=== PATIENT | female | born 1945 | race Caucasian/White ===

== ENCOUNTER 2017-06-19 15:00 | Emergency (ER) | payer MEDICARE, OTHER ==
[~2017-06-19] VITALS: Wt 62.5 kg
[~2017-06-19 15:00] MED LIST: ASPI325T32 PO; ATEN-51 PO; EZET10TA3 PO; GABA300C PO; INSU100I22 SC; LISI-313 PO; METF1000 PO; RANI150T5 PO; TRAM50TA2 PO
[2017-06-19] MEDS ORDERED: KETOROLAC 15 MG INJ IM STA (16:33)
[2017-06-19] MEDS ORDERED: ACETAMINOPHEN 500 MG TAB PO STA (16:33)
--- NOTE | 2017-06-19 16:33 | ERD ---
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 pt has seen her MD for this pain was given pills that make her sleepy but does not help the pain. Patient does not remember the name of the pills. She denies any alteration in bowel or bladder, denies any difficulty ambulating, has a difficult time explaining the pain, reports that she does have numbness and tingling at the bottom of her foot. ROS All systems reviewed and are negative except as per history of present illness. Medications Home Meds Active Scripts Hydrocodone/Acetaminophen ([place] 5-325 Tablet) 1 Each Tablet, 1 TAB PO Q6H Y for PAIN, #7 TAB Prov:STEPHANIE LU 06/19/17 Metformin Hcl* (Metformin Hcl*) 1,000 Mg Tablet, 1000 MG PO WITH BREAKFAST DINNE for 30 Days, #30 TAB Prov:LENORE GARCIA TERMINOLOGIST 08/05/16 Lisinopril* (Lisinopril*) 5 Mg Tablet, 5 MG PO DAILY for 30 Days, TAB Prov:LENORE GARCIA TERMINOLOGIST 08/05/16 Tramadol HCl (Tramadol HCl) 50 Mg Tablet, 50 MG PO Q6H Y for PAIN, #14 TAB Prov:LUIS M LORENZO 04/25/16 Reported Medications Ezetimibe* (Zetia*) 10 Mg Tablet, 10 MG PO DAILY, TAB 04/24/16 Insulin Aspart (Novolog FlexPen) 100 Unit/1 Ml Insuln.pen, 4 UNITS SC WITH DINNER, EA 04/24/16 Atenolol* (Atenolol*) 25 Mg Tablet, 25 MG PO DAILY, #30 TAB 03/17/16 Ranitidine Hcl* (Ranitidine Hcl*) 150 Mg Tablet, 150 MG PO Q12, TAB 12/22/14 Aspirin* (Aspirin* EC) 325 Mg Tablet.dr, 325 MG PO DAILY, TAB 12/22/14 Gabapentin* (Neurontin*) 300 Mg Capsule, 300 MG PO TID, CAP 11/24/14 Allergies Allergies: Coded Allergies: Penicillins (Verified Allergy, Intermediate, itchy throat, rashes, 09/07/16 ) PMhx/Soc History of Surgery: Yes (gallbladder surgery, removal of benign tumor in the uterus) Anesthesia Reaction: No Hx Neurological Disorder: No Hx Respiratory Disorders: No Hx Cardiac Disorders: Yes (CAD s/p [place] w/ PCI and stenting) Hx Psychiatric Problems: Yes (depression) Hx Miscellaneous Medical Probl: Yes (dyslipidemia, syncope) Hx Alcohol Use: No Hx Substance Use: No Hx Tobacco Use: No Physical Exam Vitals Vital Signs Date Time Temp Pulse Resp B/P Pulse Ox O2 Delivery O2 Flow Rate FiO2 06/19/17 15:04 98.0 78 18 183/77 99 Vitals stable, blood pressure 183/77, triage notes reviewed Physical Exam Const: Well-nourished, well-appearing, Setswana-speaking female no acute Head: Eyes: Normal Conjunctiva, PERRLA, EOMI ENT: Normal External Ears, Nose and Mouth. Neck: . Resp: Respirations even and unlabored no respiratory distress Cardio: Abd: Skin: Back Exam: Skin: No bruising or rash Compartments: Soft Motor: Normal flexion and extension of bilateral hip/knee/ ankle/foot Sensation: Intact to light touch throughout Bones: No tenderness over bony prominence of spine. Ext: No cyanosis, or edema Neur: Awake and alert Psych: Normal Mood and Affect Results 24 hrs Current Medications Medications (Trade) Dose Ordered Sig/Tirso Route PRN Reason Start Time Stop Time Status Last Admin Dose Admin Ketorolac Tromethamine (Toradol) 15 mg ONCE STAT IM 06/19/17 16:33 06/19/17 16:35 DC 06/19/17 17:12 Acetaminophen (Tylenol Tab) 500 mg ONCE STAT PO 06/19/17 16:33 06/19/17 16:35 DC 06/19/17 17:12 Procedures/MDM This 71-year-old female presents to emergency department with complaint of chronic back pain. Patient reports that she has been seen in emergency department 3 months ago was given pain medication that makes her sleepy, patient reports that it has not improved the pain, pain radiates from the left lumbar to her gluteus nick down to her foot. Patient describes pain as tingling and numbness in her foot. Chart review shows no past medical history of lumbar pain. Patient has been seen multiple times for abdominal pain and chest pain. She is a diabetic on lisinopril for hypertension and has taken tramadol in the past. Patient has no acute musculoskeletal injury reported no injury, cauda equina is not suspected. X-ray to rule out fracture is not indicated. Patient is treated for pain Toradol 15 mg intramuscularly., 500 mg of Tylenol, and urinalysis negative for evidence of leukocytosis, nitrates or microscopic hematuria, negative for evidence of infection, urinary tract infection is not found. Patient will be discharged with [place] 1 tab p.o. every 6 hours as needed pain, count of 7 given. Follow-up with primary physician for management of nonacute back pain. Return to emergency department for alteration in bowel or bladder, incontinence, difficulty ambulating, pain not resolved with medication. I feel the patient is stable for discharge at this time. I have discussed results, examination findings, the treatment plan with the patient and family present prior to discharge. Indications for emergent reevaluation, side effects of medication were also discussed. All questions were answered. Patient verbalizes understanding and agrees with plan of care. Departure Diagnosis: Primary Impression: Back pain Back pain location: low back pain Chronicity: unspecified Back pain laterality: left Sciatica presence: with sciatica Sciatica laterality: sciatica of left side Qualified Code: M54.42 - Left-sided low back pain with left-sided sciatica, unspecified chronicity Condition: Good Patient Instructions: Back Pain (Acute Or Chronic), Back Pain W/ Sciatica [facility] Additional Instructions: Thank you for for coming to [facility] for your care today. Please ask your nurse or provider if you have questions about your care today and do not leave until all your questions have been answered. Please use any medications given as directed and follow-up with your doctor (or the doctor you were referred to) in the next 2-3 days. If you do not have a primary care doctor you may follow up at the [facility] (listed below). You may also use motrin and tylenol as needed for fever and/or pain unless instructed otherwise by your provider or nurse. Indications for more urgent follow-up have been discussed, but you may return to the Emergency Department at ANY time for any worrisome or worsening symptoms. If you have abdominal pain, please know that no test or exam you received is perfect and you should follow up within 8 hours for continued pain. If you had any imaging studies today, such as an X-Ray or CT Scan, these studies will be reviewed later by a radiologist. You will be called if there are important findings that were not identified today, so make sure the contact information you provided at registration is correct. If you received any narcotic pain control medicine today, such as Vicodin, Morphine or Dilaudid, your coordination and judgment may be affected for a number of hours. Please do not drive or operate heavy machinery, and you may want someone to assist you at home. If you were given a prescription for narcotic medication, be aware that it is very addictive- use sparingly and only if necessary. STEPHANIE LU Jun 19, 2017 16:32
[2017-06-19] MEDS ORDERED: HYDR-906 PO (16:51)
[2017-06-19 17:55] VITALS: BP 175/72; PULSE 88; RESP 18
== END 2017-06-19 17:58 | disposition home or self-care (01) ==
LOC: FTE 15:00
DX: M54.42 Lumbago with sciatica, left side (principal); I25.10 Atherosclerotic heart disease of native coronary artery without angina pectoris; E11.9 Type 2 diabetes mellitus without complications; Z79.4 Long term (current) use of insulin; Z79.82 Long term (current) use of aspirin; Z79.84 Long term (current) use of oral hypoglycemic drugs; Z98.61 Coronary angioplasty status
CPT/HCPCS: 96372; 99284; J1885

== ENCOUNTER 2017-07-22 23:54 | Emergency (ER) | payer MEDICARE, OTHER ==
[~2017-07-22] VITALS: Ht 149.9 cm; Wt 64.0 kg
[~2017-07-22 23:54] MED LIST changes: +HYDR-906 PO
[2017-07-22 23:57] VITALS: Ht 149.9 cm; Wt 64.0 kg
--- NOTE | 2017-07-23 00:52 | ERA ---
ER Documentation Chief Complaint Date/Time DATE: 07/23/17 TIME: 00:51 Chief Complaint c/o abd pain x 2 wks. HPI . The patient is a 71-year-old female, presenting to the ER because of upper abdominal pain radiating to the upper back for 2 weeks intermittently. She has similar symptoms previously, denies fever, chills, neck pain. She complained of vague chest discomfort couple weeks ago, denies any chest pain or dyspnea at the moment. She denies dysuria, diarrhea, constipation. She does not smoke, drinks socially Past medical history: Diabetes mellitus, dyslipidemia, hypertension, CAD, depression Past surgical history: Stent PCI, cholecystectomy ROS All systems reviewed and are negative except as per history of present illness. Medications Home Meds Active Scripts Lansoprazole* (Prevacid*) 30 Mg Capsule., 30 MG PO DAILY, #20 Prov:DALE VALDES MD 07/23/17 Hydrocodone/Acetaminophen ([place] 5-325 Tablet) 1 Each Tablet, 1 TAB PO Q6H Y for PAIN, #7 TAB Prov:STEPHANIE LU 06/19/17 Metformin Hcl* (Metformin Hcl*) 1,000 Mg Tablet, 1000 MG PO WITH BREAKFAST DINNE for 30 Days, #30 TAB Prov:LENORE GARCIA NP 08/05/16 Lisinopril* (Lisinopril*) 5 Mg Tablet, 5 MG PO DAILY for 30 Days, TAB Prov:LENORE GARCIA NP 08/05/16 Tramadol HCl (Tramadol HCl) 50 Mg Tablet, 50 MG PO Q6H Y for PAIN, #14 TAB Prov:LUIS M LORENZO 04/25/16 Reported Medications Ezetimibe* (Zetia*) 10 Mg Tablet, 10 MG PO DAILY, TAB 04/24/16 Insulin Aspart (Novolog FlexPen) 100 Unit/1 Ml Insuln.pen, 4 UNITS SC WITH DINNER, EA 04/24/16 Atenolol* (Atenolol*) 25 Mg Tablet, 25 MG PO DAILY, #30 TAB 03/17/16 Ranitidine Hcl* (Ranitidine Hcl*) 150 Mg Tablet, 150 MG PO Q12, TAB 12/22/14 Aspirin* (Aspirin* EC) 325 Mg Tablet., 325 MG PO DAILY, TAB 12/22/14 Gabapentin* (Neurontin*) 300 Mg Capsule, 300 MG PO TID, CAP 11/24/14 Allergies Allergies: Coded Allergies: Penicillins (Verified Allergy, Intermediate, itchy throat, rashes, 09/07/16 ) PMhx/Soc History of Surgery: Yes (gallbladder surgery, removal of benign tumor in the uterus) Anesthesia Reaction: No Hx Neurological Disorder: No Hx Respiratory Disorders: No Hx Cardiac Disorders: Yes (CAD s/p [place] w/ PCI and stenting) Hx Psychiatric Problems: Yes (depression) Hx Miscellaneous Medical Probl: Yes (dyslipidemia, syncope) Hx Alcohol Use: No Hx Substance Use: No Hx Tobacco Use: No Physical Exam Vitals Vital Signs Date Time Temp Pulse Resp B/P Pulse Ox O2 Delivery O2 Flow Rate FiO2 07/23/17 01:56 98.7 81 18 165/81 98 Room Air 07/22/17 23:57 98.7 89 18 195/93 98 Physical Exam Const: No acute distress. Head: Atraumatic. Eyes: Normal Conjunctiva. ENT: Normal External Ears, Nose and Mouth. Neck: Full range of motion. No meningismus. Resp: Clear to auscultation bilaterally. Cardio: Regular rate and rhythm. Abd: Soft, non distended, normal bowel sounds, Mild epigastric abdominal tenderness, no right lower quadrant, rigidity, rebound, CVA tenderness Skin: No petechiae or rashes. Back: No midline or flank tenderness. Ext: No cyanosis, or edema. Neur: Awake and alert. No focal deficit Psych: Normal Mood and Affect. Result Diagram: 07/23/17 0147 07/23/17 0147 Results 24 hrs Laboratory Tests Test 07/23/17 01:26 07/23/17 01:47 Bedside Urine pH (LAB) 7.0 Bedside Urine Protein (LAB) Trace Bedside Urine Glucose (UA) Negative Bedside Urine Ketones (LAB) Negative Bedside Urine Blood Negative Bedside Urine Nitrite (LAB) Negative Bedside Urine Leukocyte Esterase (L Trace White Blood Count 7.910^3/ul Red Blood Count 5.3510^6/ul Hemoglobin 15.9g/dl Hematocrit 47.2% Mean Corpuscular Volume 88.2fl Mean Corpuscular Hemoglobin 29.7pg Mean Corpuscular Hemoglobin Concent 33.7g/dl Red Cell Distribution Width 13.0% Platelet Count 00280^3/UL Mean Platelet Volume 11.3fl Neutrophils % 58.2% Lymphocytes % 33.5% Monocytes % 6.6% Eosinophils % 1.1% Basophils % 0.3% Nucleated Red Blood Cells % 0.0/100WBC Neutrophils # 4.610^3/ul Lymphocytes # 2.710^3/ul Monocytes # 0.510^3/ul Eosinophils # 0.110^3/ul Basophils # 0.010^3/ul Nucleated Red Blood Cells # 0.010^3/ul Sodium Level 140mmol/L Potassium Level 3.9mmol/L Chloride Level 103mmol/L Carbon Dioxide Level 28mmol/L Anion Gap 13 Blood Urea Nitrogen 13mg/dl Creatinine 0.64mg/dl Glucose Level 172mg/dl Calcium Level 9.9mg/dl Total Bilirubin 1.4mg/dl Direct Bilirubin 0.00mg/dl Indirect Bilirubin 1.4mg/dl Aspartate Amino Transf (AST/SGOT) 17IU/L Alanine Aminotransferase (ALT/SGPT) 21IU/L Alkaline Phosphatase 143IU/L Troponin I < 0.012ng/ml Total Protein 8.2g/dl Albumin 4.3g/dl Globulin 3.90g/dl Albumin/Globulin Ratio 1.10 Lipase 25U/L Current Medications Medications (Trade) Dose Ordered Sig/Tirso Route PRN Reason Start Time Stop Time Status Last Admin Dose Admin Morphine Sulfate (morphine) 2 mg ONCE STAT IV 07/23/17 00:57 07/23/17 00:59 DC 07/23/17 00:57 Ondansetron HCl (Zofran Inj) 4 mg ONCE STAT IV 07/23/17 00:57 07/23/17 00:59 DC 07/23/17 00:57 Procedures/[place] [id number] Radiology Main Line: [phone] DIAGNOSTIC IMAGING REPORT Patient: LYNDA STEWART : 1945 Age: 71 Sex: F MR #: [id number] DOS: 07/23/17 0057 Ordering MD: DALE VALDES MD Location: E/R Room/Bed: PROCEDURE: XR Chest. CLINICAL INDICATION: Chest pain TECHNIQUE: AP Portable chest. COMPARISON: 08/03/2016 FINDINGS: There is mild cardiomegaly. The lungs are clear. The osseous structures are unremarkable. IMPRESSION: No acute findings. RPTAT: HIKT .Osbaldo Varghese MD, MD Date Time Electronically viewed and signed by .Osbaldo Varghese MD, MD on 07/23/2017 01:56 .T/ CC: DALE VALDES MD [place] [id number] Radiology Main Line: [phone] DIAGNOSTIC IMAGING REPORT Patient: LYNDA STEWART : 1945 Age: 71 Sex: F MR #: [id number] DOS: 07/23/17 0057 Ordering MD: DALE VALDES MD Location: E/R Room/Bed: PROCEDURE: CT of the abdomen and pelvis without contrast CLINICAL INDICATION: Abdominal pain. TECHNIQUE: Spiral CT images through the abdomen and pelvis without the use of oral and without the use of intravenous contrast. The administered radiation dose is CTDI 9.81 and DLP 575.72. One or more of the following dose reduction techniques were used: automated exposure control, adjustment of the mA and/or kV according to patient size, or use of iterative reconstruction technique. COMPARISON: 03/17/2016 FINDINGS: The study is limited by lack of intravenous contrast. Lower thorax: Slight dependent atalectasis of the lung bases is seen.. Cardiomegaly. Trace pericardial fluid. No pleural effusion. Aortic and coronary artery calcification. Calcified right middle lobe granuloma. Liver: The liver is unremarkable in appearance. Biliary: Prior cholecystectomy.. No biliary ductal dilatation is seen. Pancreas: Unremarkable. No focal mass or inflammatory process. Spleen: The spleen is unremarkable in appearance Adrenal glands: Unremarkable in appearance. No focal nodule.. Genitourinary: Tiny nonobstructing bilateral renal stones.. There is wall thickening of the urinary bladder with slight sparing of the posterior wall. The bladder measures up to 1.7 cm in thickness. No bladder stones or focal masses are seen.. Gastrointestinal Tract: Evaluation of the bowel is limited by patient breathing motion and lack of enteric contrast. No definite bowel obstruction, free air, or abscess. Few colonic diverticula. No evidence for diverticulitis.. The appendix is unremarkable in appearance. Small hiatal hernia. Tiny fat- containing umbilical hernia. Lymph nodes: No visible pathologic lymphadenopathy.. Vascular structures: Aortic and coronary artery calcification.. Peritoneal cavity: Unremarkable mesentery and peritoneum.. No mass, edema, or ascites. Reproductive Organs: Unremarkable uterus and adnexal regions.. Musculoskeletal: There is mild degenerative change of the spine. IMPRESSION: Wall thickening of the urinary bladder wall. Question cystitis. Pyelonephritis cannot be evaluated without intravenous contrast. Tiny nonobstructing bilateral renal stones. Few colonic diverticula. No evidence for diverticulitis. Tiny fat-containing umbilical hernia. Small hiatal hernia.. RPTAT: HLBE Physician Mariaa Date Time Electronically viewed and signed by Dipti Thompson Physician on 07/23/2017 02 :00 LE/ CC: DALE VALDES MD [place] [id number] Radiology Main Line: [phone] DIAGNOSTIC IMAGING REPORT Patient: LYNDA STEWART : 1945 Age: 71 Sex: F MR #: [id number] DOS: 07/23/17 0237 Ordering MD: DALE VALDES MD Location: E/R Room/Bed: PROCEDURE: US Abdomen (right upper quadrant). CLINICAL INDICATION: Pain. TECHNIQUE: Multiple real-time longitudinal and transverse images of the right upper quadrant of the abdomen were acquired utilizing a curved array transducer. Images were reviewed on a high-resolution PACS workstation. COMPARISON: CT abdomen 07/23/2017 FINDINGS: The liver is enlarged measuring 17.5 cm length with normalechogencity. There is no focal intrahepatic mass.. The gallbladder has been removed. No intra or extrahepatic biliary dilatation is seen. The common bile duct measures 3.4 mm in maximal dimension. The visualized portions of the pancreas are unremarkable with obscuration of the tail of the pancreas. No free fluid is identified. The right kidney measures 9.6 cm in length. There is normal echogenicity within the right kidney. There is no perinephric fluid collection. No hydronephrosis, mass, or calculus is seen. IMPRESSION: 1. Negative examination. RPTAT: HMVK .Dale Barillas MD, Date Time Electronically viewed and signed by .Dale Barillas MD, on 07/23/2017 03:02 .K/ CC: DALE VALDES MD EKG: Read by emergency physician Rate/Rhythm: Sinus bradycardia 46 beats/min QRS, ST, T-waves: No ST elevation, no T inversion, Inferior, anterior, lateral Q waves Impression: Abnormal EKG MEDICAL MAKING DECISION: The patient is a 71-year-old female, presenting with acute abdominal pain of unclear etiology, sinus bradycardia. She was treated with morphine 2 mg IV for pain and Zofran 4 mg IV for nausea with good response. The differential diagnoses considered include but are not limited to cholelithiasis, cholecystitis, cystitis, pancreatitis, hepatitis, gastritis, peptic ulcer disease, gastric ulcer, appendicitis, diverticulitis, cholangitis, choledocholithiasis, partial small bowel obstruction, sick sinus syndrome. Departure Diagnosis: Primary Impression: Abdominal pain Additional Impressions: Hiatal hernia Sinus bradycardia Abnormal LFTs Condition: Good Comments She was discharged with Prevacid I discussed the findings with the patient. I advised the patient to follow-up with the primary physician in about 1-2 days for reevaluation and referral to electronics engineering professor for abnormal LFT, sooner if needed and return if any concern. DALE VALDES MD Jul 23, 2017 00:52
[2017-07-23] MEDS ORDERED: morphine 2 MG INJ IV STA (00:57)
[2017-07-23] MEDS ORDERED: ONDANSETRON 4 MG INJ IV STA (00:57)
[2017-07-23 01:20] LABS: URINE BLOOD (Dip) POC Negative (NEGATIVE)
[2017-07-23 01:56] VITALS: BP 165/81; PULSE 81; RESP 18; TEMP 98.7
--- NOTE | 2017-07-23 01:56 | RADRPT ---
PROCEDURE: XR Chest. CLINICAL INDICATION: Chest pain TECHNIQUE: AP Portable chest. COMPARISON: 08/03/2016 FINDINGS: There is mild cardiomegaly. The lungs are clear. The osseous structures are unremarkable. IMPRESSION: No acute findings. RPTAT: HIKT .Osbaldo Varghese MD, Date Time Electronically viewed and signed by .Osbaldo Varghese MD, on 07/23/2017 01:56 .T/
--- NOTE | 2017-07-23 02:00 | RADRPT ---
PROCEDURE: CT of the abdomen and pelvis without contrast CLINICAL INDICATION: Abdominal pain. TECHNIQUE: Spiral CT images through the abdomen and pelvis without the use of oral and without the use of intravenous contrast. The administered radiation dose is CTDI 9.81 and DLP 575.72. One or m ore of the following dose reduction techniques were used: automated exposure control, adjustment of the mA and/or kV according to patient size, or use of iterative reconstruction technique. COMPARISON: 03/17/2016 FINDINGS: The study is limited by lack of intravenous contrast. Lower thorax: Slight dependent atalectasis of the lung bases is seen.. Cardiomegaly. Trace pericardi al fluid. No pleural effusion. Aortic and coronary artery calcification. Calcified right middle lobe granuloma. Liver: The liver is unremarkable in appearance. Biliary: Prior cholecystectomy.. No biliary ductal dilatation is seen. Pancreas: Unremarkable. No focal mass or inflammatory process. Spleen: The spleen is unremarkable in appearance Adrenal glands: Unremarkable in appearance. No focal nodule.. Genitourinary: Tiny nonobstructing bilateral renal stones.. There is wall thickening of the urinary bladder with slight sparing of the posterior wall. The bladder measures up to 1.7 cm in thickness. N o bladder stones or focal masses are seen.. Gastrointestinal Tract: Evaluation of the bowel is limited by patient breathing motion and lack of e nteric contrast. No definite bowel obstruction, free air, or abscess. Few colonic diverticula. No ev idence for diverticulitis.. The appendix is unremarkable in appearance. Small hiatal hernia. Tin y fat-containing umbilical hernia. Lymph nodes: No visible pathologic lymphadenopathy.. Vascular structures: Aortic and coronary artery calcification.. Peritoneal cavity: Unremarkable mesentery and peritoneum.. No mass, edema, or ascites. Reproductive Organs: Unremarkable uterus and adnexal regions.. Musculoskeletal: There is mild degenerative change of the spine. IMPRESSION: Wall thickening of the urinary bladder wall. Question cystitis. Pyelonephritis cannot be evaluated w ithout intravenous contrast. Tiny nonobstructing bilateral renal stones. Few colonic diverticula. No evidence for diverticulitis. Tiny fat-containing umbilical hernia. Small hiatal hernia.. RPTAT: HLBE Dpiti Thompson, Physician Date Time Electronically viewed and signed by Dipti Thompson, Physician on 07/23/2017 02:00 LE/
[2017-07-23 02:06] LABS: BASOPHILS % 0.3 % (0.0-2.0); EOSINOPHILS # 0.1 10^3/ul (0.0-0.5); EOSINOPHILS % 1.1 % (0.0-7.0); HEMATOCRIT 47.2 % (37.0-47.0); HEMOGLOBIN 15.9 g/dl (12.0-16.0); LYMPHOCYTES # 2.7 10^3/ul (0.8-2.9); LYMPHOCYTES % 33.5 % (15.0-51.0); MEAN CORPUSCULAR HEMOGLOBIN 29.7 pg (29.0-33.0); MEAN CORPUSCULAR HGB CONC 33.7 g/dl (32.0-37.0); MEAN CORPUSCULAR VOLUME 88.2 fl (82.0-101.0); MEAN PLATELET VOLUME 11.3 fl (7.4-10.4); MONOCYTE # 0.5 10^3/ul (0.3-0.9); MONOCYTES % 6.6 % (0.0-11.0); NEUTROPHIL # 4.6 10^3/ul (1.6-7.5); NEUTROPHILS % 58.2 % (39.0-77.0); PLATELET COUNT 287 10^3/UL (140-415); RED BLOOD COUNT 5.35 10^6/ul (4.20-5.40); WHITE BLOOD COUNT 7.9 10^3/ul (4.8-10.8)
[2017-07-23 02:28] LABS: ALANINE AMINOTRANSFERASE 21 IU/L (13-69); ALBUMIN 4.3 g/dl (3.3-4.9); ALKALINE PHOSPHATASE 143 IU/L (42-121); ANION GAP 13 (8-16); ASPARTATE AMINO TRANSFERASE 17 IU/L (15-46); BILIRUBIN,INDIRECT 1.4 mg/dl (0-1.1); BILIRUBIN,TOTAL 1.4 mg/dl (0.2-1.3); BLOOD UREA NITROGEN 13 mg/dl (7-20); CALCIUM 9.9 mg/dl (8.4-10.2); CARBON DIOXIDE 28 mmol/L (21-31); CHLORIDE 103 mmol/L (97-110); CREATININE 0.64 mg/dl (0.44-1.00); GLUCOSE 172 mg/dl (70-220); POTASSIUM 3.9 mmol/L (3.5-5.1); SODIUM 140 mmol/L (135-144); TOTAL PROTEIN 8.2 g/dl (6.1-8.1)
--- NOTE | 2017-07-23 03:02 | RADRPT ---
PROCEDURE: US Abdomen (right upper quadrant). CLINICAL INDICATION: Pain. TECHNIQUE: Multiple real-time longitudinal and transverse images of the right upper quadrant of th e abdomen were acquired utilizing a curved array transducer. Images were reviewed on a high-resoluti on PACS workstation. COMPARISON: CT abdomen 07/23/2017 FINDINGS: The liver is enlarged measuring 17.5 cm length with normalechogencity. There is no focal intrahepat ic mass.. The gallbladder has been removed. No intra or extrahepatic biliary dilatation is seen. The common bile duct measures 3.4 mm in maximal dimension. The visualized portions of the pancreas are unremarkable with obscuration of the tail of the pancreas. No free fluid is identified. The right kidney measures 9.6 cm in length. There is normal echogenicity within the right kidney. There is no perinephric fluid collection. No hydronephrosis, mass, or calculus is seen. IMPRESSION: 1. Negative examination. RPTAT: HMVK .Dale Barillas MD, Date Time Electronically viewed and signed by .Dale Barillas MD, on 07/23/2017 03:02 .K/
[2017-07-23 03:03] LABS: TROPONIN-I < 0.012 ng/ml (0.00-0.12)
[2017-07-23] MEDS ORDERED: LANS30CA47 PO (03:20)
[2017-07-23] MEDS ORDERED: PITA1TAB PO (05:17)
[2017-07-23] MEDS ORDERED: NIT4 SL (05:17)
[2017-07-23] MEDS ORDERED: CANA100T PO (05:17)
[2017-07-23] MEDS ORDERED: PITA2TAB PO (05:17)
== END 2017-07-23 04:05 | disposition home or self-care (01) ==
LOC: E/R 23:54
DX: K44.9 Diaphragmatic hernia without obstruction or gangrene (principal); R00.1 Bradycardia, unspecified; R94.5 Abnormal results of liver function studies; E11.9 Type 2 diabetes mellitus without complications; I10 Essential (primary) hypertension; I25.10 Atherosclerotic heart disease of native coronary artery without angina pectoris; Z79.4 Long term (current) use of insulin; Z79.84 Long term (current) use of oral hypoglycemic drugs; Z98.61 Coronary angioplasty status; Z79.82 Long term (current) use of aspirin
CPT/HCPCS: 36415; 71010; 74176; 76705; 80053; 81003; 83690; 84484; 85025; 93005; 96374; 96375; 99285; J2270; J2405

== ENCOUNTER 2017-10-26 15:03 | Emergency (ER) | END 2017-10-26 18:10 | disposition home or self-care (01) ==

== ENCOUNTER 2017-12-07 13:42 | Emergency (ER) | END 2017-12-07 20:15 | disposition home or self-care (01) ==

== ENCOUNTER 2018-08-12 23:26 | Observation (INO) | END 2018-08-15 14:30 | disposition home or self-care (01) ==